=== PATIENT | female | born 1990 | race African-American/Black ===

== ENCOUNTER 2017-04-08 23:59 | Emergency (ER) | payer OTHER ==
--- NOTE | ~2017-04-08 | CR170 ---
[facility] A Service of [facility] RADIOLOGY TEXT RESULTS PATIENT: THADDEUS ALEXANDER LOCATION: CFTX : 88 UNIT #: [id number] AGE: [address]: Oleg Buitrago SEX: F ORDER DR: [id number] [facility] [address] [place] [address] [place], [place] [address] [id number] E MR#: [id number] Acc #: [id number] NAME: THADDEUS ALEXANDER : 1990 SEX: F STUDY DATE/TIME: 04/09/2017 1:10 UNIT: [facility] ROOM: STUDY DESCRIPTION: CR Knee 2 Views Rt Attending Physician: Oleg Buitrago P.A.-C. Ordering Physician: Oleg Buitrago P.A.-C. Primary Care Physician: [facility] MEDICAL IMAGING REPORT This report is preliminary unless electronic signature is present EXAM Right knee HISTORY Pain x3 days. No known injury. FINDINGS 2 views of the right knee demonstrate no fracture or dislocation. 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 Marked obesity. Dictated by... Jun Schmidt M.D. THIS IS AN ELECTRONICALLY VERIFIED REPORT Jun Schmidt M.D. at 04/10/2017 10:34 PM NORM/rishi TD: 04/09/2017 07:07 JOB #: [id number] MEDICAL IMAGING REPORT Page 1 of 1 COPY
[~2017-04-08 23:59] MED LIST: AMOXICILLIN PO; BACTRIM DS TABL1 TAB PO; CIPRO PO; FLAGYL PO; FLEXERIL PO; LORTAB 5/500 TA1 TA1 PO; NORVASC PO; PRILOSEC PO; TAMIFLU75 M1 PO; VICODIN 5/500 T1 TAB PO; ZYRTEC PO
== END 2017-04-09 01:59 | disposition home or self-care (01) ==
LOC: CFTX 23:59
DX: J06.9 Acute upper respiratory infection, unspecified (principal); M25.561 Pain in right knee; Z98.890 Other specified postprocedural states
CPT/HCPCS: 73560; 99283